=== PATIENT | female | born 1960 | race Asian ===

== ENCOUNTER 2017-01-30 05:51 | Day surgery (SDC) | payer OTHER ==
[~2017-01-30] VITALS: Ht 161.3 cm; Wt 61.3 kg
[2017-01-30] MEDS ORDERED: SODIUM CHLORIDE 0.9% 1,000 ML IV ONE ×2 (06:30→06:33)
[2017-01-30] MEDS ORDERED: ACET-48 PO (07:00)
[2017-01-30] MEDS ORDERED: D-ME118S13 PO (07:01)
[2017-01-30] MEDS ORDERED: MONT10TA21 PO (07:02)
[2017-01-30] MEDS ORDERED: OMEP20 PO (07:03)
[2017-01-30] MEDS ORDERED: DOXY25SU3 PO (07:04)
[2017-01-30] MEDS ORDERED: SUCR1TAB PO (07:05)
[2017-01-30] MEDS ORDERED: ALBU8.5H IH (07:06)
[2017-01-30] MEDS ORDERED: MOME13HF IH (07:07)
[2017-01-30] MEDS ORDERED: FLUT16H NASAL (07:07)
[2017-01-30] MEDS ORDERED: CETI-260 PO (07:08)
[2017-01-30] MEDS ORDERED: MIDAZOLAM HCL 2 MG/2 ML VIAL ONE (07:58)
[2017-01-30] MEDS ORDERED: FentaNYL CITRATE-PF 100 MCG/2 ML VIAL ONE (07:58)
[2017-01-30] MEDS ORDERED: MethylPREDNISolone SOD SUCC 125 MG/2 ML VIAL IVP ONE (09:15)
[2017-01-30] MEDS ORDERED: MethylPREDNISolone SOD SUCC 125 MG/2 ML VIAL ONE (09:19)
[2017-01-30] MEDS ORDERED: BENZOCAINE 20% 50 MCG/SPRAY 57 GM TP ONE (18:08)
[2017-01-30] MEDS ORDERED: LIDOCAINE HCL 4% 50 ML SOLUTION TP ONE (18:08)
[2017-01-30] MEDS ORDERED: LIDOCAINE HCL 2% 30 ML JELLY TP ONE (18:08)
[2017-01-30] MEDS ORDERED: ALBUTEROL SULFATE 2.5 MG/0.5 ML NEB SOLUTION NEB ONE (18:08)
[2017-01-30] MEDS ORDERED: OXYGEN THERAPY IH SCH (20:00)
== END 2017-01-30 10:35 | disposition home or self-care (01) ==
LOC: SDS 05:51
PROVIDERS: ATTEND Internal Medicine Critical Care Medicine
DX: J38.4 Edema of larynx (principal); B37.0 Candidal stomatitis; M54.9 Dorsalgia, unspecified; Z91.013 Allergy to seafood; Z87.01 Personal history of pneumonia (recurrent); Z86.19 Personal history of other infectious and parasitic diseases
CPT/HCPCS: 31623; 31624; 71010; 87015 ×2; 87070; 87077; 87101; 87185; 87205; 87220; 88108; 88312; J2250; J2930; J3010; J7030; 87184